=== PATIENT | female | born 1945 | race Caucasian/White ===

== ENCOUNTER 2019-03-22 05:22 | Day surgery (SDC) | payer OTHER, BC ==
[~2019-03-22] VITALS: Ht 162.6 cm; Wt 79.4 kg
[~2019-03-22 05:22] MED LIST: ALLERCLEAR10 MG PO; CO Q-10100 MG PO; ELIQUIS5 MG PO; IBUPROFEN 200200 M1 PO; KRILL OIL500 MG PO; MAGNESIUM CITR100 MG PO; MAXZIDE-25 MG1 EACH PO; OSTEO BI-FLEX1 EAC4 PO; SIMVASTATIN40 MG PO; SORINE 80 MG TA80 M1 PO; TYLENOL EXTRA500 MG PO; VITAMIN D31000 UNI2 PO
[2019-03-22 07:00] VITALS: BP 138/81
--- NOTE | 2019-03-26 06:14 | O ---
[facility] [place] [address] OPERATIVE REPORT Name: JENNIFER VELAZQUEZ Room #: DEP [facility]#: [id number] Admission: 03/22/19 ������������������ Attend Phys: Delroy Grier MD Discharge: 03/22/19 ������������������ Date of : 43 Report #: [id number] THIS REPORT FOR: //name// CC: Dr. Sal Wayne Rosas Tone Grier DATE OF SERVICE: 03/22/2019 SURGEON: Delroy Grier MD TOLL TEST WORKER: None. PREOPERATIVE DIAGNOSIS: Bilateral lower lid ectropion. POSTOPERATIVE DIAGNOSIS: Bilateral lower lid ectropion. OPERATION PERFORMED: Bilateral lower lid ectropion repair. ANESTHESIA: Local with IV sedation. COMPLICATIONS: None. INDICATIONS FOR PROCEDURE: This patient has bilateral acquired lower lid ectropion with chronic tearing and discharge. The current procedures are undertaken in order to improve the patient's visual function, lacrimal outflow, and level of comfort. Informed consent was obtained to include but not limit to the risk of loss of vision, bleeding, infection, scarring, failure to improve the problem and need for further surgery. DESCRIPTION OF OPERATION: The patient was taken to the operating room where 2% Xylocaine with epinephrine mixed with equal parts of 0.75% Marcaine with Wydase was administered transcutaneously and transconjunctivally to each lower lid and lateral canthal area. The patient was then prepped and draped in the usual sterile fashion. A Li clamp was then used to clamp the left lateral canthus following which a sharp canthotomy and cantholysis were performed. The tarsal strip was prepared laterally, removing the lash bearing portion of the redundant lid margin and the redundant tarsal plate. Hemostasis was achieved with a monopolar cautery, as it was throughout the case. The tarsal strip was then secured to the internal portion of the lateral orbital tubercle with two interrupted 5-0 Prolene sutures. The lateral canthal angle was sharply reformed as the subcutaneous structures and the skin were closed with multiple interrupted 6-0 plain gut sutures. Attention was then turned to the right side where the same procedure was [facility] [address] [place] [address] OPERATIVE REPORT Name: JENNIFER VELAZQUEZ Room #: DEP [facility]#: [id number] Admission: 03/22/19 ������������������ Attend Phys: Delroy Grier MD Discharge: 03/22/19 ������������������ Date of : 43 Report #: [id number] performed. The wounds were cleaned and dressed with ophthalmic antibiotic ointment. The patient was then transported to the recovery area, having tolerated the procedure well with no anesthetic or operative complications being noted. ��������������������������������������������� <ELECTRONICALLY SIGNED> ���������������������������������������� By: Delroy Grier MD ��������������������������������������������� 03/26/19 0614 [id number] Delroy Grier MD /nt
== END 2019-03-22 08:17 | disposition home or self-care (01) ==
LOC: OR 05:22 → TBA 05:23 → OR 08:17
DX: H02.105 Unspecified ectropion of left lower eyelid (principal); H02.102 Unspecified ectropion of right lower eyelid; I10 Essential (primary) hypertension; E78.5 Hyperlipidemia, unspecified; I48.91 Unspecified atrial fibrillation; Z87.891 Personal history of nicotine dependence; Z90.49 Acquired absence of other specified parts of digestive tract; Z79.01 Long term (current) use of anticoagulants; Z98.41 Cataract extraction status, right eye; Z98.42 Cataract extraction status, left eye; Z79.899 Other long term (current) drug therapy; Z98.890 Other specified postprocedural states; Z88.8 Allergy status to other drugs, medicaments and biological substances
CPT/HCPCS: 50010; 50101; 50386; 50398; 51636; 56527; 56531; 62110; 62850; 70005

== ENCOUNTER 2019-04-12 05:53 | Day surgery (SDC) | payer OTHER, BC ==
[~2019-04-12] VITALS: Ht 162.6 cm; Wt 78.9 kg
--- NOTE | ~2019-04-12 | O ---
[facility] [place] [address] OPERATIVE REPORT Name: JENNIFER VELAZQUEZ Room #: 150-3 [facility]#: [id number] Admission: 04/12/19 ������������������ Attend Phys: Delroy Grier MD Discharge: ������������������ Date of : 43 Report #: [id number] THIS REPORT FOR: //name// CC: Sal Grier PREOPERATIVE DIAGNOSIS: Bilateral upper lid ptosis with superior visual field defects both eyes. POSTOPERATIVE DIAGNOSIS: Bilateral upper lid ptosis with superior visual field defects both eyes. OPERATION PERFORMED: Bilateral upper lid functional ptosis repair. BUSINESS OFFICE COORDINATOR: None. ANESTHESIA: Local with IV sedation. COMPLICATIONS: None. INDICATIONS FOR PROCEDURE: This patient has bilateral upper lid ptosis with superior visual field loss both eyes. Visual field testing demonstrates dense superior visual defects. Retesting with the upper lid elevated shows an improvement in visual field loss of over 30% and in excess of 12 degrees. The current procedure is being undertaken in order to improve the patient's visual function. Informed consent was obtained to include but not limited to the risk of loss of vision, bleeding, infection, scarring, failure to improve the problem and need for further surgery, such as adjustment of lid height. DESCRIPTION OF PROCEDURE: The patient was taken to the operating room, where 2% Xylocaine with epinephrine mixed with equal parts of 0.75% Marcaine with Wydase was administered transcutaneously to each upper lid. The patient was then prepped and draped in the usual sterile fashion. An upper lid crease incision was then made bilaterally and the dissection was carried down until the orbital septum was identified. The orbital septum was then cleared and the preaponeurotic fat identified. The levator aponeurosis was then disinserted from the anterior surface of the tarsal plate and dissected free in the avascular Barboza's muscle plane. The aponeurosis was then advanced and reattached to the anterior surface of the tarsal plate with interrupted mattress 6-0 Novafil sutures on each side, adjusting for height and contour. The redundant aponeurosis was then amputated. The incision was then closed with multiple interrupted 6-0 chromic sutures that were used to recreate an upper lid [address] [address] OPERATIVE REPORT Name: JENNIFER VELAZQUEZ Room #: 150-3 [facility].#: [id number] Admission: 04/12/19 ������������������ Attend Phys: Delroy Grier MD Discharge: ������������������ Date of : 43 Report #: [id number] crease. The skin was closed with a running 6-0 plain gut suture. The wound was then cleaned and dressed with ophthalmic antibiotic ointment followed by a Telfa pad. The patient was transported to the recovery area, having tolerated the procedure well with no anesthesia or operative complications being noted. ��������������������������������������������� ���������������������������������������� By: ��������������������������������������������� [id number] Delroy Grier MD /nt
[2019-04-12 06:40] VITALS: BP 133/71
== END 2019-04-12 08:36 | disposition home or self-care (01) ==
LOC: OR 05:53 → TBA 05:54 → OR 08:36
DX: H02.413 Mechanical ptosis of bilateral eyelids (principal); H53.462 Homonymous bilateral field defects, left side; H53.461 Homonymous bilateral field defects, right side; I10 Essential (primary) hypertension; E78.5 Hyperlipidemia, unspecified; I48.91 Unspecified atrial fibrillation; Z79.01 Long term (current) use of anticoagulants; Z90.49 Acquired absence of other specified parts of digestive tract; Z87.891 Personal history of nicotine dependence; Z98.41 Cataract extraction status, right eye; Z98.42 Cataract extraction status, left eye; Z98.890 Other specified postprocedural states; Z88.8 Allergy status to other drugs, medicaments and biological substances; Z79.899 Other long term (current) drug therapy
CPT/HCPCS: 50010; 50101; 50386; 50398; 51636; 56528; 56531; 62110; 62850; 70005